=== PATIENT | female | born 1970 | race Caucasian/White ===

== ENCOUNTER 2017-05-06 12:53 | Emergency (ER) | payer SELFPAY ==
[~2017-05-06 12:53] MED LIST: BUSP10TA PO; DULO1CAP2 PO; HALO5TAB PO; IBUP-232 PO; LORA1TAB12 PO; QUET-88 PO; TRAZ100T5 PO; VALP250C PO
[2017-05-06 12:55] VITALS: BP 120/72; PULSE 70; RESP 20; TEMP 98.5; O2SAT 100
[2017-05-06] MEDS ORDERED: AZIT250T3 PO (13:23)
[2017-05-06] MEDS ORDERED: NICO14DI4 T-DERMAL (13:23)
[2017-05-06] MEDS ORDERED: PRED20 PO (13:23)
--- NOTE | 2017-05-06 13:23 | PD ---
HPI Chief Complaint: Respiratory Symptoms Time Seen by Provider: 13:01 Travel History International Travel<30 days: No Contact w/Intl Traveler<30days: No Traveled to known affect area: No History of Present Illness HPI This is a 46-year-old female who presents to the emergency department with a history of COPD with increasing shortness of breath over the past week associated with a productive cough with green sputum, constant, moderate severity, worse with exertion. She denies any fevers or chills. She has had some chest tightness. She doesn't have any primary care and doesn't have a doctor. She doesn't use an inhaler at home. PFSH Past Medical History Hx Anticoagulant Therapy: No Asthma: Yes Anxiety: Yes Cancer: No Cardiovascular Problems: No Chemotherapy: No Cerebrovascular Accident: No Diabetes: No Diminished Hearing: No Endocrine: No Gastrointestinal Disorders: Yes (HEMORRHOIDS) Genitourinary: No Headaches: No Immune Disorder: No Kidney Stones: Yes Musculoskeletal: Yes (back) Neurologic: No Psychiatric: Yes Reproductive: No Respiratory: Yes (COPD) Immunizations Current: No Seizures: No Influenza Vaccination: No ?: Not LMP: TUBAL Menopausal: Yes : 4 Para: 3 Miscarriage: 1 : 1 Tubal Ligation: Yes Past Surgical History Abdominal Surgery: Yes (appendectomy,cholecystectomy) AICD: No Appendectomy: Yes Arteriovenous Shunt: No Cholecystectomy: Yes Genitourinary Surgery: Yes (kidney stones) Gynecologic Surgery: Yes (tubal ligation) Insulin Pump: No Joint Replacement: No Neurologic Surgery: No Oral Surgery: Yes (tooth pulled) Pacemaker: No Other Surgery: Yes (COLONOSCOPY AND HEMMOROIDECTOMY, brest augmentation) Social History Alcohol Use: Yes (OCC) Tobacco Use: Yes (1/2 PPD) Substance Use: No (DENIES) Allergies-Medications (Allergen,Severity, Reaction): Coded Allergies: promethazine (Unverified Adverse Reaction, Intermediate, anxiety twitching , 03/17/17) *MDRO Multi-Drug Resistant Organism (Unverified Adverse Reaction, Mild, ) MRSA 2009 Wounds Reported Meds & Prescriptions Reported Meds & Active Scripts Active Ibuprofen 600 Mg Tab 600 Mg PO TID Reported Quetiapine ER (Quetiapine Fumarate) 200 Mg Tab 500 Mg PO HS Valproic Acid 250 Mg Cap 500 Mg PO Q12HR Trazodone HCl 100 Mg Tab 100 Mg PO HS Quetiapine Fumarate ER (Quetiapine Fumarate) 200 Mg Tab 300 Mg PO HS Quetiapine Fumarate ER (Quetiapine Fumarate) 200 Mg Tab 100 Mg PO DAILY Lorazepam 1 Mg Tab 1 Mg PO DAILY PRN Haloperidol 5 Mg Tab 5 Mg PO TID Duloxetine DR (Duloxetine HCl) 30 Mg Capdr 30 Mg PO DAILY Buspirone (Buspirone HCl) 10 Mg Tab 10 Mg PO Q12HR Review of Systems Except as stated in HPI: all other systems reviewed are Neg Physical Exam Narrative GENERAL:Well appearing, no acute distress SKIN: Focused skin assessment warm and dry. HEAD: Atraumatic. Normocephalic. EYES: Pupils equal and round. No injection or drainage. ENT: Moist mucous membranes NECK: Trachea midline. CARDIOVASCULAR: Regular rate and rhythm. No murmur appreciated. RESPIRATORY: Diffuse wheezing. No accessory muscle use. GASTROINTESTINAL: Abdomen soft, non-tender, nondistended. MUSCULOSKELETAL: No obvious deformities. NEUROLOGICAL: Awake and alert. No obvious cranial nerve deficits. Moving all extremities. PSYCHIATRIC: Appropriate mood and affect; insight and judgment normal. Data Data Last Documented VS Vital Signs Date Time Temp Pulse Resp B/P (MAP) Pulse Ox O2 Delivery O2 Flow Rate FiO2 05/06/17 13:00 16 100 Room Air 05/06/17 12:55 98.5 70 120/72 (88) Orders Orders Albuterol Hfa Inh (Proair Hfa Inh) (05/06/17 13:30) MDM Medical Decision Making Medical Screen Exam Complete: Yes Emergency Medical Condition: Yes Differential Diagnosis Pneumonia, bronchitis, COPD exacerbation Narrative Course This is a 46-year-old female who presents to the emergency department with a productive cough and wheezing on exam. I suspect she is having a COPD exacerbation. Patient was given bronchodilators, prednisone and antibiotic. She is not hypoxic and she is well-appearing at this time. I don't think she requires any imaging or further testing and I think she is appropriate for outpatient management. She was also given a referral to [facility] Diagnosis Primary Impression: COPD exacerbation Patient Instructions: General Instructions Additional Instructions: If you develop severe shortness of breath, chest pain, or difficulty breathing return to the emergency department. Use albuterol every 4 hours for the next 2 days. Then use as needed for wheezing. Complete your course of steroids. Complete your course of antibiotics. Follow up with your primary care physician in 2-3 days if your symptoms have not improved. Med/Other Pt SpecificInfo: Prescription(s) given Scripts Nicotine Patch (Nicoderm CQ Patch) 14 Mg/24 Hr Patch 14 MG T-DERMAL DAILY for Smoking Cessation, #30 PATCH 0 Refills Prov: Jackie Valdez MD 05/06/17 Azithromycin (Azithromycin) 250 Mg Tab 250 MG PO DIRECTED for Infection, #6 TAB 0 Refills Take 2 tabs (500 mg) on day 1 then 1 tab daily x 4 days. Prov: Jackie Valdez MD 05/06/17 Prednisone (Prednisone) 20 Mg Tab 40 MG PO DAILY for 5 Days, TAB 0 Refills Prov: Jackie Valdez MD 05/06/17 Disposition: 01 DISCHARGE HOME Condition: Stable Jackie Valdez MD May 06, 2017 13:23
[2017-05-06] MEDS ORDERED: ALBUTEROL SULFATE 90 MCG/ACT HFA 8 GM INHALER INH ONE (13:30)
== END 2017-05-06 13:50 | disposition home or self-care (01) ==
LOC: PHED 12:53
DX: J44.1 Chronic obstructive pulmonary disease with (acute) exacerbation (principal); F17.200 Nicotine dependence, unspecified, uncomplicated; Z79.899 Other long term (current) drug therapy
CPT/HCPCS: 99284